=== PATIENT | male | born 1970 | race Caucasian/White ===

== ENCOUNTER → 2017-05-13 | Outpatient (CLI) | payer BC ==
[~2017-05-13] MED LIST: OXYC1TAB3 PO
--- NOTE | 2017-05-13 13:15 | DIAGNOSTIC IMAGING REPORT ---
R SHOULDER MIN 2 VIEWS CLINICAL HISTORY: RIGHT SHOULDER PAIN COMPARISON: None. DISCUSSION: No fractures or dislocations are visualized. There are no erosive or destructive changes. There are no visible periarticular calcifications. IMPRESSION: Unremarkable conventional radiographic evaluation of the right shoulder. Electronically signed by: Michael Estes M.D. 05/13/2017 1:14 PM Dictated Date/Time: 05/13/2017 1:13 PM
== END | disposition home or self-care (01) ==
LOC: C.RDSM 13:00
PROVIDERS: ATTEND Physician Assistant
DX: M25.511 Pain in right shoulder (principal)

== ENCOUNTER → 2017-12-27 | Outpatient (CLI) | payer BC, OTHER ==
--- NOTE | 2017-12-27 08:22 | DIAGNOSTIC IMAGING REPORT ---
R FINGER(S) MIN 2 VIEWS CLINICAL HISTORY: 47 years-old Male presenting with BILATERAL THUMB PAIN. TECHNIQUE: Frontal, oblique, and lateral views of the right first finger were obtained. COMPARISON: Right hand radiographs from 09/27/2015. FINDINGS: No acute fracture or malalignment. No advanced degenerative change. No radiographic soft tissue abnormality. IMPRESSION: No acute osseous injury. Electronically signed by: Sincere Hobson M.D. 12/27/2017 8:20 AM Dictated Date/Time: 12/27/2017 8:20 AM
--- NOTE | 2017-12-27 08:22 | DIAGNOSTIC IMAGING REPORT ---
L WRIST MIN 3 VIEWS ROUTINE CLINICAL HISTORY: LEFT WRIST PAIN COMPARISON: None. DISCUSSION: No fractures or dislocations are visualized. No erosive or destructive changes are delineated. IMPRESSION: Unremarkable measuring radiographic evaluation of the left wrist. Electronically signed by: Michael Estes M.D. 12/27/2017 8:20 AM Dictated Date/Time: 12/27/2017 8:20 AM
--- NOTE | 2017-12-27 08:23 | DIAGNOSTIC IMAGING REPORT ---
LEFT THUMB 3 VIEWS HISTORY: BILATERAL THUMB PAIN COMPARISON: None. FINDINGS: There is no fracture or dislocation. Soft tissues are unremarkable. No radiopaque foreign bodies. No pleural effusions identified. Bone mineralization is intact. Cartilage spaces are maintained for age. IMPRESSION: No significant abnormality within the left thumb. Electronically signed by: Joseph Johnson M.D. 12/27/2017 8:22 AM Dictated Date/Time: 12/27/2017 8:20 AM
== END | disposition home or self-care (01) ==
LOC: C.RDSM 13:13
PROVIDERS: ATTEND Physician Assistant
DX: M25.532 Pain in left wrist (principal); M79.644 Pain in right finger(s); M79.645 Pain in left finger(s)